=== PATIENT | male | born 1985 | race Two or more races ===

== ENCOUNTER 2024-09-21 10:16 | Emergency (ER) | payer MEDICAID, SELFPAY ==
[2024-09-21 10:18] VITALS: BMI 29.0
[2024-09-21 10:51] VITALS: BP 105/70; PULSE 85; RESP 18; TEMP 36.9; O2SAT 99
--- NOTE | 2024-09-21 10:59 | XR_ITS ---
Examination: Shoulder,left, 3 views Technique: Shoulder AP internal rotation, AP external rotation, Y view shoulder, 3 views Exam date and time :September 21, 2024 1120 hrs. Indications: Patient fell one year ago with injury to the shoulder, persistent shoulder pain. Findings: The films are overpenetrated No acute fracture Moderate narrowing glenohumeral joint No calcific tendinitis Impression: Moderate narrowing glenohumeral joint
--- NOTE | 2024-09-21 10:59 | PD.EDRME ---
Rapid Medical Screening Exam RME Arrival date/time: 09/21/24 10:16 39-year-old male presents emergency department complaining of left shoulder pain with draining wounds. Chief Complaint: Skin/Abscess/Foreign Body Time Seen by Provider: 09/21/24 10:52 Vital signs: Vital Signs Temperature 98.5 F 09/21/24 10:51 Pulse Rate 85 09/21/24 10:51 Respiratory Rate 18 09/21/24 10:51 Blood Pressure 105/70 09/21/24 10:51 Pulse Oximetry (%) 99 09/21/24 10:51 Oxygen Delivery Method Room Air 09/21/24 10:51 Vital signs reviewed by provider: Yes
[2024-09-21 12:02] LABS: Lactate (Lactic Acid) 1.2 mMol/L (0.4-2.0)
[2024-09-21 12:24] LABS: Basophils % (Auto) 0 % (0-2.5); Eosinophils # (Auto) 0.2 Thou/mm3 (0.0-0.5); Eosinophils % (Auto) 2 % (0-10); Hematocrit 30.5 % (41.0-53.0); Hemoglobin 9.2 g/dL (13.5-16.0); Immature Granulocytes % (Auto) 0 % (0-0); Immature Granulocytes Auto 0.02 Thou/mm3 (0.00-0.00); Lymphocytes # (Auto) 1.6 Thou/mm3 (1.0-4.8); Lymphocytes % (Auto) 17 % (10-50); Mean Corpuscular HGB Conc 30.2 g/dl (31.0-37.0); Mean Corpuscular Hemoglobin 24.1 pg (25.0-35.0); Mean Corpuscular Volume 80 fL (80-100); Monocytes # (Auto) 0.5 Thou/mm3 (0.0-0.8); Monocytes % (Auto) 6 % (0-12); Neutrophils # (Auto) 6.9 Thou/mm3 (1.8-7.7); Neutrophils % (Auto) 75 % (37-80); Nucleated Red Blood Cell % 0 /100 WBC (0); Platelet Count 721 Thou/mm3 (140-440); RDW Standard Deviation 43.4 fL (35.1-43.9); Red Blood Count 3.81 Miln/mm3 (4.50-5.90); White Blood Count 9.3 Thou/mm3 (3.8-10.6)
[2024-09-21 12:39] LABS: Alanine Aminotransferase < 7 U/L (10-49); Albumin, Serum 4.1 gm/dL (3.5-5.0); Albumin/Globulin Ratio 1.2 (1.2-2.2); Alkaline Phosphatase 135 U/L (46-116); Anion Gap 7 (7-16); Aspartate Amino Transferase < 8 U/L (0-34); BUN/Creatinine Ratio 13 Ratio (12-20); Bilirubin,Total 0.2 mg/dL (0.3-1.2); Blood Urea Nitrogen 9 mg/dL (9-23); Calcium 9.4 mg/dL (8.3-10.6); Calcium (Corrected) 9.4 mg/dL (8.5-10.1); Carbon Dioxide 26.1 mMol/L (20.0-31.0); Chloride 102 mMol/L (98-107); Creatinine (Component) 0.7 mg/dL (0.6-1.3); Estimated Creatinine Clearance 125.3 mL/min (>60); Globulin 3.5 gm/dL (2.3-3.5); Glucose 284 mg/dL (74-106); Osmolality,Calculated 278 (275-295); Potassium 4.3 mMol/L (3.4-5.1); Procalcitonin 0.12 ng/ml (0.0-0.49); Sodium 135 mMol/L (136-145); Total Protein 7.6 gm/dL (5.7-8.2); eGFR > 60 See Note
--- NOTE | 2024-09-21 16:49 | PD.EDADULT ---
ED General RME/HPI General Chief complaint: Skin/Abscess/Foreign Body Stated complaint: LEFT SHOULDER PAIN AND RASH X1WK Time Seen by Provider: 09/21/24 10:52 Arrival date/time: 09/21/24 10:16 CC: Left shoulder pain HPI patient has had chronic left shoulder infections ongoing for years, the patient stated he said to new sites on the back of his left upper arm that were states they squeezed a lot of pus out of it . Patient denies fever chills chest pain. Patient is nontoxic-appearing stable vital signs, and not in any acute distress. Onset of the back of the arm was stopped approximately 1 week ago. Patient states this left shoulder infection has been ongoing for some time patient was initially seen in [place] and started on antibiotics and pain medications . Patient is seen by [facility]. RME / HPI RME / HPI narrative: 09/21/24 10:16 39-year-old male presents emergency department complaining of left shoulder pain with draining wounds. Related Data Previous Rx's ?Medication ?Instructions ?Recorded sulfamethoxazole 800 1 tab PO BID 7 days #14 tabs 09/21/24 mg-trimethoprim 160 mg tablet (Bactrim DS) Allergies Allergy/AdvReac Type Severity Reaction Status Date / Time ampicillin Allergy Difficulty Verified 09/21/24 10:21 Breathing Review of Systems Review of Systems Narrative Review of Systems: GEN: No fever, no chills, no weight loss EYES: No discharge, no visual changes, no pain HEENT: No ear pain, no congestion, no sore throat PULM: No shortness of breath, no cough, no congestion CV: No chest pain, no dyspnea on exertion, no palpitations GI: No nausea, no vomiting, no diarrhea, no pain, no constipation : No frequency, no urgency, no dysuria MUSC/SKEL: + joint pain, no back pain SKIN: No rash PSYCH: No hallucinations, no depression HEME/LYMPH: No easy bleeding or bruising tendencies NEURO: No weakness, no headache Past Medical History Social History SMOKING STATUS: Never smoker ED Exam Narrative Physical exam: [General: Obese not in cot no acute distress Head normocephalic HEENT: Within acceptable limits Neck is supple nontender Chest equal chest rise. Nontender to palpation Respiratory: Clear to auscultation no wheezes crackles or rubs CV: Rate rhythm is regular no murmurs rubs or clicks Abdomen is distended secondary to body habitus soft nontender no masses positive bowel sounds all 4 quadrants Back: No CVA tenderness no spinous process tenderness from cervical spine thoracic and lumbar spine Skin: Left anterior chest, noted upward into the left anterior shoulder patient has multiple pockmarks of old scarring secondary to what appeared to be abscesses some crusted, others scars. This entire site in the anterior portion of the axilla and the left anterior chest is firm but not rigid to palpation (pt states chronic, and not tender). 2 new sites, overlying the trapezius muscle. No surrounding erythema no edema mildly tender to touch. Mildly firm to palpation. Intact no petechiae rash induration ulceration or crepitus Extremities: Moving all extremity against resistance cap refill less than 2 seconds neurosensory intact Neuro: Awake alert oriented x3 Glascow coma 15 no focal deficits] Course Quality Measures none Orders Category Date Time Status XR shoulder LT min 2V Stat Exams 09/21/24 10:59 Completed Blood Culture (Lab) Stat Lab 09/21/24 11:41 Received CBC Stat Lab 09/21/24 11:41 Completed CMP [Comprehensive Metabolic Panel] Stat Lab 09/21/24 11:41 Completed Lactic Acid [Lactate (Lactic Acid)] Stat Lab 09/21/24 11:41 Completed Procalcitonin Stat Lab 09/21/24 11:41 Completed Trimethoprim/Sulfa 160/800 Ds [Bactrim Ds] Med 09/21/24 16:48 Discontinued 1 tab PO X1 ONE Vital Signs Vital signs: Vital Signs Temperature 98.5 F 09/21/24 10:51 Pulse Rate 85 09/21/24 10:51 Respiratory Rate 18 09/21/24 10:51 Blood Pressure 105/70 09/21/24 10:51 Pulse Oximetry (%) 99 09/21/24 10:51 Oxygen Delivery Method Room Air 09/21/24 10:51 [facility] Patient data External records reviewed:: [facility] previous records Clinical information provided by:: patient Social determinants that could affect healthcare access:: none Patient has the following chronic illnesses:: 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 No leukocytosis CMP shows a glucose of 234, no other significant electrolyte imbalances renal impairment transaminitis or T. bili elevation. X-ray of the left shoulder shows no acute findings interpreted by me read by radiology that requires emergent or immediate intervention. Interpretation Summary: I am concerned that this patient has never had this chronic abscess region explored. The patient appears not in any acute distress has no fever or no toxic syndromes. Patient be discharged home on antibiotics and if cannot get into [facility] for further evaluation to return to the emergency room for reevaluation. Medications Medications considered but not ordered:: None Medication administrations:: Medication Administration History Discontinued Medications Trimethoprim/Sulfamethoxazole (Trimethoprim/Sulfa 160/800 Ds Tablet) 1 tab PO X1 ONE Stop: 09/21/24 16:49 None Consultations Consultation(s) initiated? (list below): No Diagnosis Differential Diagnosis ED Complaint MDM: Abscess cellulitis contact dermatitis Most likely diagnosis given after review of the tests above:: Arm/chest abscess Admission Indicated Admission indicated?: not indicated Explain why admission is indicated or not indicated:: Stable for outpatient follow-up Admission Request Was there a request for admission?: No Disposition Plan Disposition Plan: Discharge Discharge Attestation Discharge Attestation: The patient and all family members were given an opportunity to ask questions and understood the discharge instructions. Discharge instructions specifically effects, indications for sooner follow up or return to the emergency department, and the expected course of current diagnosis. Patient condition: Stable Medical Decision Making Differential Diagnosis Differential Diagnosis: Abscess cellulitis contact dermatitis Lab Data 09/21/24 11:41 09/21/24 11:41 Labs: Lab Results 09/21/24 Range/Units 11:41 WBC 9.3 (3.8-10.6) Thou/mm3 RBC 3.81 L (4.50-5.90) Miln/mm3 Hgb 9.2 L (13.5-16.0) g/dL Hct 30.5 L (41.0-53.0) % MCV 80 (80-100) fL MCH 24.1 L (25.0-35.0) pg MCHC 30.2 L (31.0-37.0) g/dl RDW Std Deviation 43.4 (35.1-43.9) fL Plt Count 721 H (140-440) Thou/mm3 Neut % (Auto) 75 (37-80) % Lymph % (Auto) 17 (10-50) % [place] % (Auto) 6 (0-12) % Eos % (Auto) 2 (0-10) % Baso % (Auto) 0 (0-2.5) % Neut # (Auto) 6.9 (1.8-7.7) Thou/mm3 Lymph # (Auto) 1.6 (1.0-4.8) Thou/mm3 [place] # (Auto) 0.5 (0.0-0.8) Thou/mm3 Eos # (Auto) 0.2 (0.0-0.5) Thou/mm3 Baso # (Auto) 0.0 (0.0-0.2) Thou/mm3 Immature Gran # (Auto) 0.02 H (0.00-0.00) Thou/mm3 Absolute Nucleated RBC 0.00 (0.00-0.00) Thou/mm3 Immature Gran % 0 (0-0) % Nucleated RBC % 0 (0) /100 WBC Sodium 135 L (136-145) mMol/L Potassium 4.3 (3.4-5.1) mMol/L Chloride 102 (98-107) mMol/L Carbon Dioxide 26.1 (20.0-31.0) mMol/L Anion Gap 7 (7-16) BUN 9 (9-23) mg/dL Creatinine 0.7 (0.6-1.3) mg/dL Estim Creat Clear Calc 125.3 (>60) mL/min eGFR > 60 (60 - ) See Note BUN/Creatinine Ratio 13 (12-20) Ratio Glucose 284 H (74-106) mg/dL Calculated Osmolality 278 (275-295) Lactic Acid 1.2 (0.4-2.0) mMol/L Calcium 9.4 (8.3-10.6) mg/dL Corrected Calcium 9.4 (8.5-10.1) mg/dL Total Bilirubin 0.2 L (0.3-1.2) mg/dL AST < 8 (0-34) U/L ALT < 7 L (10-49) U/L Alkaline Phosphatase 135 H (46-116) U/L Total Protein 7.6 (5.7-8.2) gm/dL Albumin 4.1 (3.5-5.0) gm/dL Globulin 3.5 (2.3-3.5) gm/dL Albumin/Globulin Ratio 1.2 (1.2-2.2) Procalcitonin 0.12 (0.0-0.49) ng/ml Discharge Plan Plan Patient Disposition: HOME (Self Care) Patient condition on transfer: Stable Prescriptions/Referrals Prescriptions/Med Rec: New sulfamethoxazole-trimethoprim [Bactrim DS] 800-160 mg tablet 1 tab PO BID 7 Days Qty: 14 0RF Referrals: Nicko Andrews MD [Physician] - In 1 week No Primary/Family,Physician [Primary Care Provider] - In 1 week Problem List Clinical Impression: Abscess of arm, left Patient/Caregiver Discharge Instructions Education Materials: ED Abscess Antibiotic ... Additional Instructions: Take the medications as prescribed there is no improvement in the next 4 to 5 days follow with your primary care doctor or return the emergency room for reevaluation. Print Language: Senegalese Stand Alone Forms: [employer] Award Info., Patient Portal Info Letter PA/OME Supervising Physician JENIFER/MOE Supervising Physician: Will Leija ENP
[2024-09-21] MEDS: TRIMETHOPRIM/SULFA 160/800 DS TABLET 1 TAB PO (17:23)
[2024-09-21 17:46] VITALS: BP 117/76; PULSE 97; RESP 16; TEMP 36.8; O2SAT 99
== END 2024-09-21 17:51 | disposition home or self-care (01) ==
PROVIDERS: Emergency Provider Emergency Medicine
DX: L02.414 Cutaneous abscess of left upper limb (principal)
CPT/HCPCS: 36415; 73030; 80053; 83605; 84145; 85025; 87040; 87077; 87186; 99283; A9270

== ENCOUNTER 2025-05-04 22:08 | Emergency (ER) | payer SELFPAY ==
[2025-05-04 22:08] VITALS: BP 130/84; PULSE 78; RESP 23; TEMP 36.9; O2SAT 93
--- NOTE | 2025-05-04 22:13 | PD.EDALLER ---
ED Allergic Reaction RME/HPI General Chief complaint: Allergic Reaction Stated complaint: INSECT BITE, ALLERGIC REACTION Time Seen by Provider: 05/04/25 22:46 Arrival date/time: 05/04/25 22:08 RME / HPI RME / HPI narrative: Dr. Mario?s Main ED Evaluation: 40yo male presenting with diffuse pruritis and facial swelling after being reportedly stung by a bee just [employer]. Denies throat constricting sensation, shortness of breath, or shortness of breath. PMH includes DM; no history of heart disease. PSH noncontributory. Social history includes occasional alcohol use, no tobacco or illicit drug use. Allergies to penicillin. Related Data Previous Rx's ?Medication ?Instructions ?Recorded loratadine 10 mg tablet (Claritin) 10 mg PO QDAY 3 days #3 tabs 05/04/25 prednisone 20 mg tablet 20 mg PO QDAY #3 tabs 05/04/25 Allergies Allergy/AdvReac Type Severity Reaction Status Date / Time ampicillin Allergy Difficulty Verified 05/04/25 22:09 Breathing Review of Systems Review of Systems Systems Reviewed: All systems reviewed, normal except as documented Past Medical History Social History SMOKING STATUS: Never smoker ED Exam Narrative Physical exam: GENERAL APPEARANCE: alert and oriented x 4, appears to be flushed with erythematous rash, primarily at the trunk and face VITALS: All vitals were reviewed and the pulse ox is % on room air, which is normal according to my interpretation. HEENT: Normocephalic, atraumatic; 2+ diffuse facial edema, pupils equal, round, reactive to light; EOMI; mucous membranes pink, moist; oropharynx clear, no angioedema NECK: Supple, no stridor LUNGS: CTABL, no wheezes, no rales, no rhonchi HEART: Regular rate, regular rhythm; normal S1, S2; no murmurs ABDOMEN: non distended; soft BACK: no CVA tenderness EXTREMITIES: atraumatic; no edema NEUROLOGIC: awake; alert and oriented x4; cranial nerves II-XII grossly intact; no focal sensory or motor deficits PSYCHIATRIC: appropriate mood and affect SKIN: warm, dry, appears to be flushed with erythematous rash, primarily at the trunk and face Course Quality Measures none Orders Category Date Time Status DiphenhydrAMINE INJ [Benadryl Inj] Med 05/04/25 22:18 Discontinued 50 mg IVP X1 ONE EPINEPHrine Inj [Adrenalin Inj] Med 05/04/25 22:18 Discontinued 0.3 mg SC X1 ONE MethylPREDNISolone.* [SoluMEDROL Inj] Med 05/04/25 22:18 Discontinued 125 mg IVP X1 ONE Sodium Chloride 0.9% 1000 ml [Ns] 1,000 ml Med 05/04/25 22:18 Discontinued IV 999 mls/hr Vital Signs Vital signs: Vital Signs Temperature 98.4 F 05/04/25 22:08 Pulse Rate 78 05/04/25 22:08 Respiratory Rate 23 H 05/04/25 22:08 Blood Pressure 130/84 05/04/25 22:08 Pulse Oximetry (%) 93 L 05/04/25 22:08 Oxygen Delivery Method Room Air 05/04/25 22:08 Allergic Reaction MDM Narrative MDM Narrative:: Scribe Attestation: 05/04/25 - Eulalia Hassan am scribing for and in the presence of Dr. Mario. 40yo male presenting with diffuse pruritis and facial swelling after being reportedly stung by a bee just [employer]. Denies throat constricting sensation, shortness of breath, or shortness of breath. Please see PE findings. Lab markers deferred. Patient immediately triaged to monitor bed and IV established. Patient received IV steroids, antihistamine, SQ epinephrine, and IV fluids. Patient observed for ~90 minutes with marked resolution of edema. No signs of respiratory insufficiency or hemodynamic compromise. Considered stable for discharge. Will discharge home on Claritin and Prednisone for 3 days. Dx: acute allergic reaction Patient data External records reviewed:: [facility] previous records (Per chart review, patient has no relevant previous ED visits or admissions to this facility.) Clinical information provided by:: patient Social determinants that could affect healthcare access:: none Patient has the following chronic illnesses:: none How is presenting disease/condition affected by chronic disease/condition?: no chronic disease Evaluation data The following diagnostics were reviewed and interpreted by me:: other (specify) (none) Lab and/or radiology exams considered but not ordered:: none Interpretation Summary: none Medications / Prescriptions Medications or Prescriptions considered but not ordered:: none Medication administrations:: Medication Administration History Discontinued Medications Diphenhydramine HCl (Diphenhydramine Inj 50 Mg/Ml Vial) 50 mg IVP X1 ONE Stop: 05/04/25 22:19 Last Admin: 05/04/25 22:23 Dose: 50 mg Documented By: EF Epinephrine HCl (Epinephrine Inj 1 Mg/Ml Amp) 0.3 mg SC X1 ONE Stop: 05/04/25 22:19 Last Admin: 05/04/25 22:23 Dose: 0.3 mg Documented By: EF Sodium Chloride (Ns) 1,000 mls @ 999 mls/hr IV .Q1H1M ONE Stop: 05/04/25 23:18 Last Infusion: 05/04/25 23:25 Dose: Infused Documented By: Admin: 05/04/25 22:24 Dose: 999 mls/hr Documented By: EF Methylprednisolone Sodium Succinate (Methylprednisolone Sod Succ 62.5 Mg/Ml 2ml Vial) 125 mg IVP X1 ONE Stop: 05/04/25 22:19 Last Admin: 05/04/25 22:23 Dose: 125 mg Documented By: EF see above Consultations Consultation(s) initiated? (list below): No Diagnosis Differential Diagnosis allergic reaction: anaphylaxis, allergic reaction and contact dermatitis Most likely diagnosis given after review of the tests above:: acute allergic reaction Admission Indicated Admission indicated?: not indicated Admission Request Was there a request for admission?: No Disposition Plan Disposition Plan: Discharge Discharge Attestation Discharge Attestation: The patient and all family members were given an opportunity to ask questions and understood the discharge instructions. Discharge instructions specifically effects, indications for sooner follow up or return to the emergency department, and the expected course of current diagnosis. Patient condition: Stable Discharge Plan Plan Patient Disposition: HOME (Self Care) Discharge Disposition comment: stable Prescriptions/Referrals Prescriptions/Med Rec: New loratadine [Claritin] 10 mg tablet 10 mg PO QDAY 3 Days Qty: 3 0RF prednisone 20 mg tablet 20 mg PO QDAY Qty: 3 0RF Taper: Prednisone Taper 20 mg DAILY for 3 Days and 0 Hour Problem List Clinical Impression: Allergic reaction Patient/Caregiver Discharge Instructions Discharge Activity: activity as tolerated Education Materials: ED BEE STING General Allergic Rxn Additional Instructions: Medications as directed. Increase fluids. Return as needed. Print Language: Bengali Stand Alone Forms: [employer]ah[employer]a Award Info., Patient Portal Info Letter
[2025-05-04 22:23] VITALS: BP 130/84; PULSE 78
[2025-05-04] MEDS: MethylPREDNISolone SOD SUCC 62.5 MG/ML 2ML VIAL 125 MG IVP (22:23)
[2025-05-04] MEDS: EPINEPHrine INJ 1 MG/ML AMP 0.3 MG SC (22:23)
[2025-05-04] MEDS: SODIUM CHLORIDE 0.9% 1000 ML 1,000 ML 999 ML IV (22:24)
[2025-05-04 23:55] VITALS: BP 118/77; PULSE 76; RESP 18; O2SAT 96
== END 2025-05-04 23:55 | disposition home or self-care (01) ==
LOC: SERX 05-05 00:12
PROVIDERS: Emergency Provider Emergency Medicine
DX: T63.441A Toxic effect of venom of bees, accidental (unintentional), initial encounter (principal); L29.9 Pruritus, unspecified; R22.0 Localized swelling, mass and lump, head; E11.9 Type 2 diabetes mellitus without complications; Z88.0 Allergy status to penicillin
CPT/HCPCS: 96361; 96374; 96375; 99283; J0166; J1200; J2919; J7030